=== PATIENT | male | born 1965 | race Hispanic/Latino ===

== ENCOUNTER 2018-07-29 13:26 | Emergency (ER) | payer OTHER ==
[2018-07-29 13:57] VITALS: BP 196/119
[2018-07-29 14:44] LABS: Basophils # (Auto) 0.1 K/mm3 (0.0-0.1); Basophils % (Auto) 0.9 % (0.0-1.8); Eosinophils # (Auto) 0.4 K/mm3 (0.0-0.4); Eosinophils % (Auto) 3.9 % (0.0-4.3); Lymphocytes # (Auto) 2.2 K/mm3 (1.2-5.4); Lymphocytes % (Auto) 19.8 % (13.4-35.0); Mean Corpuscular HGB Conc 37 % (32-34); Mean Corpuscular Volume 86 fl (84-94); Monocytes # (Auto) 0.9 K/mm3 (0.0-0.8); Monocytes % (Auto) 8.3 % (0.0-7.3); Platelet Count 273 K/mm3 (140-440); Red Blood Count 5.23 M/mm3 (3.65-5.03); Red Cell Distribution Width 13.9 % (13.2-15.2)
[2018-07-29 14:49] LABS: Hematocrit 44.9 % (35.5-45.6); Hemoglobin 16.4 gm/dl (11.8-15.2)
[2018-07-29] MEDS ORDERED: MORPHINE IV ONE (14:49)
[2018-07-29 15:02] LABS: Alanine Aminotransferase 33 units/L (7-56); BUN/Creatinine Ratio 19; Blood Urea Nitrogen 13 mg/dL (9-20); Calcium 8.5 mg/dL (8.4-10.2); Hemolysis Index 7
--- NOTE | 2018-07-29 17:47 | Cat Scan Report ---
PROCEDURE: CT ABDOMEN PELVIS W CON TECHNIQUE: Computerized axial tomography of the abdomen and pelvis was performed after the IV inject ion of iodinated nonionic contrast. Sagittal and coronal reformatted images obtained. HISTORY: RLQ pain COMPARISONS: None . FINDINGS: Lung bases demonstrate atelectasis. No effusion. Small hiatal hernia. Liver, spleen and pancreas unremarkable appearance Gallbladder no radiopaque calculus. No biliary dilatation Bilateral thickening of the adrenal glands left greater than right. Findings compatible with hyperpla lakia Kidneys demonstrate normal enhancement. Small cyst lower pole right kidney. Bilateral punctate nonobs tructing calculi. No hydronephrosis. No ureteral calculus. Bladder unremarkable. Aorta normal caliber. Atherosclerotic calcification. Celiac and superior mesenteric arteries are wills nt. Sigmoid diverticulosis. Minimal perisigmoid inflammatory change. Minimal diverticulitis. No free air. No free fluid. No abscess Left colonic stable alignment. Retained stool compatible with constipation. No bowel obstruction. Nor mal appendix. Bilateral fat-containing inguinal hernias. Left hernia is a large Omentum and mesentery unremarkable. No acute bony abnormality. Lumbar degenerative disc disease. IMPRESSION: Mild sigmoid diverticulitis. Diverticulosis. Mild perisigmoid inflammatory stranding. No abscess. No free air Colonic stool compatible with constipation. No bowel obstruction . Large fat-containing left inguinal hernia. Small fat-containing right inguinal hernia Normal appendix Nonobstructing renal calculi. No hydronephrosis or ureteral calculus Thickening of the adrenal glands compatible with hyperplasia [facility] call report initiated at 5:44 PM ET July 29, 2018 This document is electronically signed by Flavio Walter MD., Jul 29 2018 05:45:50 PM ET
[2018-07-29 18:06] LABS: Bilirubin,Urine NEG (Negative); Blood,Urine NEG (Negative); Color,Urine Yellow (Yellow); Protein,Urine <15 mg/dL mg/dL (Negative); Urobilinogen,Urine < 2.0 mg/dL (<2.0)
--- NOTE | 2018-07-29 18:19 | Emergency Department Report ---
ED Abdominal Pain HPI - General Chief Complaint: Abdominal Pain Stated Complaint: HTN/GROIN PAIN Time Seen by Provider: 07/29/18 14:48 Source: patient Mode of arrival: Stretcher Limitations: No Limitations - History of Present Illness Initial Comments: 52-year-old male with pain to his right groin 3 weeks. Patient states the pain initially began after lifting a heavy object 3 weeks ago. States he felt something pop at that time. Pt was seen at an outside hospital at that time and was told that the cause of his pain was his hernia, and also advised that he needed an outpt MRI. Pt has been unable to follow up with anyone due to lack of insurance. States pain became worse recently after lifting a piece of heavy rishi. Pain is worse when sitting upright. MD Complaint: abdominal pain -: week(s) (3) Location: RLQ Radiation: none Severity: moderate Severity scale (0 -10): 6 Quality: sharp Consistency: intermittent Improves With: other (supine position) Worsens With: other (sitting up, walking) Associated Symptoms: denies: nausea, vomiting, dysuria - Related Data Previous Rx's Medication Instructions Recorded Last Taken Type Ciprofloxacin HCl [Ciprofloxacin 500 mg PO Q12HR #20 tab 07/29/18 Unknown Rx TAB] Naproxen [Naprosyn] 500 mg PO BID #20 tablet 07/29/18 Unknown Rx metroNIDAZOLE [Flagyl] 500 mg PO Q12HR #20 tab 07/29/18 Unknown Rx traMADol [Ultram] 50 mg PO Q6HR PRN #7 tablet 07/29/18 Unknown Rx Allergies Allergy/AdvReac Type Severity Reaction Status Date / Time No Known Allergies Allergy Verified 07/29/18 14:00 ED Review of Systems ROS: Stated complaint: HTN/GROIN PAIN Other details as noted in HPI Comment: All other systems reviewed and negative Constitutional: denies: chills, fever Gastrointestinal: abdominal pain. denies: nausea, vomiting Genitourinary: other (reports right groin pain). denies: testicular pain ED Past Medical Hx - Past Medical History Hx Hypertension: Yes Hx Psychiatric Treatment: (bipolar, adhd) - Social History Smoking Status: Former Smoker Substance Use Type: Marijuana - Medications Home Medications: Home Medications Medication Instructions Recorded Confirmed Last Taken Type Ciprofloxacin HCl [Ciprofloxacin 500 mg PO Q12HR #20 tab 07/29/18 Unknown Rx TAB] Naproxen [Naprosyn] 500 mg PO BID #20 tablet 07/29/18 Unknown Rx metroNIDAZOLE [Flagyl] 500 mg PO Q12HR #20 tab 07/29/18 Unknown Rx traMADol [Ultram] 50 mg PO Q6HR PRN #7 tablet 07/29/18 Unknown Rx ED Physical Exam - General Limitations: No Limitations General appearance: alert, in no apparent distress - Head Head exam: Present: atraumatic, normocephalic - Eye Eye exam: Present: normal appearance - ENT ENT exam: Present: mucous membranes moist - Neck Neck exam: Present: normal inspection - Respiratory Respiratory exam: Present: normal lung sounds bilaterally. Absent: respiratory distress - Cardiovascular Cardiovascular Exam: Present: regular rate, normal rhythm - GI/Abdominal GI/Abdominal exam: Present: soft, tenderness (RLQ tenderness). Absent: distended - exam: Present: scrotal swelling, other (bilateral inguinal hernia, left side much larger than right, reducible). Absent: testicular tenderness - Extremities Exam Extremities exam: Present: normal inspection - Neurological Exam Neurological exam: Present: alert, oriented X3 - Psychiatric Psychiatric exam: Present: normal affect, normal mood - Skin Skin exam: Present: warm, dry, intact, normal color ED Course Vital Signs 07/29/18 07/29/18 13:37 15:15 Temperature 97.8 F Pulse Rate 69 65 Respiratory 18 19 Rate Blood Pressure 196/119 O2 Sat by Pulse 97 Oximetry ED Medical Decision Making - Lab Data Result diagrams: 07/29/18 14:30 07/29/18 14:30 - Radiology Data Radiology results: report reviewed, image reviewed - Medical Decision Making 52 yo male w/ right groin pain x 3 weeks, worse after lifting another heavy object. Reducible bilateral hernias on exam. CT shows fat-containing hernia on the right, no bowel. This is likely the cause of the pt's pain, although he may also have a pulled groin as he reports feeling something pop at the time of the injury. Incidental diverticulitis also found on CT, which pt has past history of. Prescriptions given for abx, pain meds. Outpt f/u advised. - Differential Diagnosis hernia, strained groin, kidney stone Critical care attestation.: If time is entered above; I have spent that time in minutes in the direct care of this critically ill patient, excluding procedure time. ED Disposition Clinical Impression: Inguinal hernia, Diverticulitis Disposition: TO HOME OR SELFCARE Is pt being admited?: No Condition: Stable Instructions: Diverticulitis (ED), Inguinal Hernia (ED), Diverticulitis Diet (ED) Prescriptions: Ciprofloxacin HCl [Ciprofloxacin TAB] 500 mg PO Q12HR #20 tab metroNIDAZOLE [Flagyl] 500 mg PO Q12HR #20 tab Naproxen [Naprosyn] 500 mg PO BID #20 tablet traMADol [Ultram] 50 mg PO Q6HR PRN #7 tablet PRN Reason: Pain [facility]-5 Days STEWART BRANDT MD [Staff Physician] - 3-5 Days Time of Disposition: 18:20
== END 2018-07-29 19:38 | disposition home or self-care (01) ==
LOC: ED 13:26
DX: K40.20 Bilateral inguinal hernia, without obstruction or gangrene, not specified as recurrent (principal); I10 Essential (primary) hypertension; F12.10 Cannabis abuse, uncomplicated; Z87.891 Personal history of nicotine dependence
CPT/HCPCS: 36415; 74177; 80053; 81001; 85025; 96374; 99284; J2270; Q9967